=== PATIENT | female | born 1960 | race Caucasian/White ===

== ENCOUNTER → 2017-09-21 | Outpatient (CLI) | payer OTHER ==
[~2017-09-21] MED LIST: IOPAMIDOL 76% 75 ML INFUS BTL 75 ML ONE; ONDA4TAB9 PO; OXYB5TAB86 PO; PER PO; TRAM-420 PO
--- NOTE | 2017-09-21 17:03 | RADIOLOGY IMAGING REPORT ---
FACILITY: [facility] PATIENT NAME: Freedom Troncoso : 1960 MR: [id number] V: [id number] EXAM DATE: ORDERING PHYSICIAN: CRISTIAN MCCLOUD TECHNOLOGIST: Location: [facility] - [place] Patient: Freedom Troncoso : 1960 Visit/Account:[id number] Date of Sevice: 09/21/2017 EXAMINATION: CT abdomen with IV contrast CT pelvis with IV contrast HISTORY: Abdominal pain, left upper quadrant pain. COMPARISON: None. TECHNIQUE: Axial images were taken through the abdomen and pelvis with intravenous contrast. Sagitt al and coronal reformatted images are also submitted. CONTRAST: 75 mL of IV Isovue-370. One of the following dose optimization techniques was utilized in the performance of this exam: Autom ated exposure control; adjustment of the mA and/or kV according to the patient's size; or use of an i terative reconstruction technique. Specific details can be referenced in the facility's radiology C T exam operational policy. FINDINGS: Liver/biliary: There is a 3.3 x 2.4 cm hypodense liver lesion in the right lobe with peripheral nodul ar enhancement with gradual fill-in on delayed images. Liver and gallbladder are otherwise homogeneou s. Pancreas: Negative. Spleen: Negative. Adrenal glands: Negative. Kidneys: There is a mildly delayed nephrogram of the left kidney with mild hydroureteronephrosis enha ncement around the proximal ureteral perdue. There is significant perinephric stranding with a rim-enh ancing fluid collection in in the interpolar region measuring 3.9 x 3.3 x 2.9 cm. There are a few pun ctate areas of increased density in the left collecting system, likely contrast. No stones visualized in the ureter. Mild thickening of the pararenal fascia. Right kidney enhances homogeneously. Pelvic structures: The bladder is empty. Previous hysterectomy. The ovaries are not visualized. Bowel: Negative. Peritoneum/retroperitoneum/mesenteries: Negative. Vessels: Mild calcified plaque of the aorta and common iliac arteries. Vascular structures are patent . Musculoskeletal/body wall: Mild degenerative changes at L4-5 and L5-S1. Lymph nodes: Negative. Lower chest: There is a trace left pleural effusion. Lung bases are otherwise clear. Cardiac size is normal. There is a trace pericardial effusion. IMPRESSION: 1. Severe left pyelonephritis with a 3.9 cm renal abscess. 2. 3.3 x 2.4 cm liver lesion is most likely a benign hemangioma. 3. Trace left pleural effusion and trace pericardial effusion. The findings regarding the left kidney were discussed with CRISTIAN MCCLOUD at 09/21/2017 4:55 PM. Report Dictated By: Fatmata Tapia MD at 09/21/2017 4:47 PM Report E-Signed By: Fatmata Tapia MD at 09/21/2017 4:57 PM WSN:[id number]
== END ==
LOC: CT 15:53
PROVIDERS: ATTEND Family Medicine
DX: N12 Tubulo-interstitial nephritis, not specified as acute or chronic (principal); N15.1 Renal and perinephric abscess; I31.3 Pericardial effusion (noninflammatory); J90 Pleural effusion, not elsewhere classified; I70.8 Atherosclerosis of other arteries
CPT/HCPCS: 74177; Q9967

== ENCOUNTER → 2017-11-27 | Outpatient (CLI) | payer OTHER ==
[~2017-11-27] MED LIST changes: -IOPAMIDOL 76% 75 ML INFUS BTL 75 ML ONE
--- NOTE | 2017-11-27 13:33 | RADIOLOGY IMAGING REPORT ---
[facility] PATIENT NAME: Freedom Troncoso : 1960 MR: [id number] V: [id number] EXAM DATE: ORDERING PHYSICIAN: TIFFAINE SOLARES TECHNOLOGIST: Location: [facility] - [place] Patient: Freedom Troncoso : 1960 Visit/Account:[id number] Date of Sevice: 11/27/2017 EXAMINATION: MRA of the [place] History: Cerebral aneurysm follow-up. History of brain tumor COMPARISON STUDIES: 11/30/2016, 01/14/2016 TECHNIQUE: 9O-svhe-[id number]-flight angiography was performed in the axial plane on the [place] without IV main olinium. All stenoses are measured according to NASCET criteria. The exam was tailored for assessment of the [place] only. Only limited sequences were obtai jaylene of the rest of the brain. FINDINGS: Carotids: negative Anterior / Posterior communicating arteries: negative Anterior cerebral arteries: negative Middle cerebral arteries: negative Intra-cranial vertebral arteries: negative Basilar artery: 2 mm probable basilar tip aneurysm unchanged. PICA / AICA / SCA / NEONATAL PEDIATRIC NURSE: negative Additional findings: Surgical cavity in the inferior left cerebellum on the source images again noted . 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 Otherwise negative MRA. Report Dictated By: Familia Merlos MD at 11/27/2017 1:20 PM Report E-Signed By: Familia Merlos MD at 11/27/2017 1:29 PM WSN:[id number]
== END ==
LOC: MRI 01:35
PROVIDERS: ATTEND Radiology Diagnostic Radiology
DX: I67.1 Cerebral aneurysm, nonruptured (principal)
CPT/HCPCS: 70544

== ENCOUNTER → 2018-10-30 | Outpatient (CLI) | payer OTHER ==
[~2018-10-30] MED LIST changes: +CHOL100062 PO; +GLUC-198 PO; +IPRA15SP7 NS
== END ==
LOC: AUD 09:00
PROVIDERS: ATTEND Otolaryngology
DX: H90.3 Sensorineural hearing loss, bilateral (principal)
CPT/HCPCS: 92557; 92570

== ENCOUNTER → 2018-12-19 | Outpatient (CLI) | payer OTHER ==
--- NOTE | 2018-12-19 10:58 | RADIOLOGY IMAGING REPORT ---
FACILITY: [facility] PATIENT NAME: Freedom Troncoso : 1960 MR: [id number] V: [id number] EXAM DATE: ORDERING PHYSICIAN: TIFFANIE SOLARES TECHNOLOGIST: Location: [facility] - [place] Patient: Freedom Troncoso : 1960 Visit/Account:[id number] Date of Sevice: 12/19/2018 EXAMINATION: Brain MR angiogram HISTORY: Aneurysm , history of cerebellar hemangioblastoma. COMPARISON: November 27, 2017 TECHNIQUE: 7Q-pwvo-io-flight angiography was performed through the brain with 3D reformations. FINDINGS: Internal carotids: Normal. Anterior/Posterior communicating arteries: Normal. Anterior cerebral arteries: Normal. Middle cerebral arteries: Normal. Posterior cerebral arteries: Normal. Vertebrobasilar: Unchanged 2 mm basilar tip aneurysm. PICA / AICA / SCA / FLOOR CARE TECHNICIAN: Normal. Non-angiographic Findings: Unchanged cystic cavity within the inferior left cerebellum. IMPRESSION: 1. Unchanged 2 mm basilar tip aneurysm. 2. Otherwise unremarkable intracranial arterial vasculature. No additional aneurysm identified. Report Dictated By: Alex Verma MD at 12/19/2018 10:48 AM Report E-Signed By: Alex Verma MD at 12/19/2018 10:53 AM WSN:[id number]
== END ==
LOC: MRI 00:43
PROVIDERS: ATTEND Radiology Diagnostic Radiology
DX: I67.1 Cerebral aneurysm, nonruptured (principal)
CPT/HCPCS: 70544